=== PATIENT | male | born 1985 | race Hispanic/Latino ===

== ENCOUNTER 2019-08-23 12:19 | Emergency (ER) | payer SELFPAY ==
[2019-08-23] MEDS ORDERED: Iopamidol-370 76% 500 ML 1 ML ONE (13:00)
[2019-08-23] MEDS ORDERED: Ketorolac Tromethamine 30 MG/ML VIAL ONE (13:35)
[2019-08-23] MEDS ORDERED: Fentanyl 100 MCG/2 ML VIAL ONE (13:36)
[2019-08-23 13:51] LABS: #Basophils 0.1 thou/uL (0.0-0.2); #Eosinphils 0.2 thou/uL (0.0-0.7); #Lymphocytes 2.4 thou/uL (1.20-3.40); #Monocytes 0.4 thou/uL (0.11-0.59); #Neutrophils 3.1 thou/uL (1.40-6.50); %Basophils 1.1 % (0.0-1.0); %Eosinophils 3.1 % (0.0-10.0); %Monocytes 6.9 % (0.0-10.0); %Neutrophils 49.8 % (42.0-75.0); Hemoglobin 13.9 g/dL (14.0-18.0); Mean Corpuscular HGB CONC 34.4 g/dL (32.0-36.0); Mean Corpuscular Hemoglobin 27.5 pg (27.0-31.0); Mean Corpuscular Volume 79.9 fL (78.0-98.0); Mean Platelet Volume 9.4 fL (7.4-10.4); Platelet Count 211 thou/uL (130-400); RBC Distribution Width 11.9 % (11.5-14.5); Red Blood Cell (RBC) Count 5.07 mill/uL (4.70-6.10); White Blood Cell (WBC) Count 6.2 thou/uL (4.8-10.8)
[2019-08-23 14:18] LABS: ALT (SGPT) 53 U/L (8-55); AST (SGOT) 28 U/L (5-34); Albumin 4.2 g/dL (3.5-5.0); Alkaline Phosphatase 77 U/L (40-110); Anion Gap 13 mmol/L (10-20); BUN (Urea Nitrogen) 15 mg/dL (8.9-20.6); Bilirubin, Total 0.3 mg/dL (0.2-1.2); Calc. Creatinine Clearance 0 mL/min (70-130); Calcium 9.3 mg/dL (7.8-10.44); Carbon Dioxide 25 mmol/L (22-29); Chloride 100 mmol/L (98-107); Estimated GFR-MDRD Greater than 90; Globulin 2.4 g/dL (2.4-3.5); Glucose 198 mg/dL (70-105); Potassium 4.6 mmol/L (3.5-5.1); Protein, Total 6.6 g/dL (6.0-8.3); Sodium 133 mmol/L (136-145)
--- NOTE | 2019-08-23 14:46 | CT ---
CT FACIAL BONES WITH CONTRAST: 08/23/19 INDICATIONS: Facial pain. Assess for abscess. There is no description as to side or location of pain. The technologist could not illicit a specific area of complaint. FINDINGS: There is abnormal soft tissue mass which may arise from the nasopharynx on the right but extends into the right pterygopalatine fossa. This mass does not show significant enhancement. There is erosion i nto the posterior right sphenoid air cell. There is also bone involvement of the right clivus with cl avicle erosion on the right anteriorly. The borders of this mass are difficult to delineate due to la ck of significant enhancement. There is evidence of intracranial extension with involvement of the me dial aspect of the right middle cranial fossa. This mass effaces the fossa of Rosenmuller on the rig ht and the AP dimension are in the 2.5 m range in the axial plane. The paranasal sinuses and mastoids are otherwise well aerated. In the oropharynx there is mild prominence of the palatine tonsils; however, these tonsils are symmet case. Hypopharynx is unremarkable as visualized. Parotid glands and submandibular glands appear unremarkable. Review of lymph node levels show level I adenopathy with slightly enlarged lymph nodes in both subman dibular regions. There is a prominent level II node on the right which measures up to 1.7 cm. Nonspec ific level II lymph nodes are seen on the left. IMPRESSION: 1. There is a soft tissue mass in the right nasopharynx which extends into the right pterygopala ke fossa. There is erosion into the posterior aspect of the right sphenoid sinus and there is also erosion into the clivus anteriorly on the right. There is evidence of extension into the right middle cranial fossa. This is a hypoenhancing lesion; however, HPV related squamous cell carcinoma should b e considered. There is level II adenopathy on the right which also can be seen with HPV related squam ous cell carcinoma. Recommend further evaluation with elective MRI of the face and neck to further assess extension. Findings relayed to Dr. Brown. POS: RE
== END 2019-08-23 15:46 | disposition home or self-care (01) ==
LOC: ERS 12:19
DX: D49.1 Neoplasm of unspecified behavior of respiratory system (principal); E11.9 Type 2 diabetes mellitus without complications; E78.5 Hyperlipidemia, unspecified; E78.00 Pure hypercholesterolemia, unspecified; I10 Essential (primary) hypertension; Z79.84 Long term (current) use of oral hypoglycemic drugs; Z79.899 Other long term (current) drug therapy
CPT/HCPCS: 36415; 70487; 80053; 85025; 96361; 96374; 96375; J1885; J3010; Q9967

== ENCOUNTER 2019-08-30 10:02 | Day surgery (SDC) | payer OTHER ==
[2019-08-29 16:09] VITALS: BMI 23.6
[2019-08-30] MEDS ORDERED: Sodium Bicarbonate 2.5 MEQ/5 ML VIAL ONE (10:12)
[2019-08-30] MEDS ORDERED: Lidocaine 1% PF 5 ML VIAL ONE (10:12)
--- NOTE | 2019-08-30 11:53 | ULT ---
ULTRASOUND GUIDED LYMPH NODE BIOPSY: HISTORY: Enlarged right neck lymph node. FINDINGS: Successful right neck lymph node biopsy with ultrasound guidance. Total of two 20-gauge Franseen biop sies were performed. Pathologist states that lesional tissue is present. TECHNIQUE: Consent was obtained to perform a right neck biopsy with ultrasound guidance. Right neck was prepped and draped in a sterile fashion. 1% lidocaine, buffered with sodium bicarbonate was used for local anesthesia. Under ultrasound guidance, a 20-gauge Franseen needle was advanced into the lymph node. G entle fine-needle aspiration was performed. Pathologist states lesional tissue is present. Second 20-gauge sample was obtained and placed directly into a fixative for flow cytometry. No immediate or post procedure complication. IMPRESSION: Successful right neck lymph node biopsy with ultrasound guidance. Transcribed Date/Time: 08/30/2019 12:09 PM
[2019-08-30 11:54] VITALS: BP 116/85; TEMP 97.7
== END 2019-08-30 11:20 | disposition home or self-care (01) ==
LOC: ULT 10:02
PROVIDERS: ATTEND Specialist
PROC: 07D13ZX Extraction of Right Neck Lymphatic, Percutaneous Approach, Diagnostic (ICD-10-PCS; principal; 2019-08-30)
DX: C96.9 Malignant neoplasm of lymphoid, hematopoietic and related tissue, unspecified (principal); E11.9 Type 2 diabetes mellitus without complications; I10 Essential (primary) hypertension; E78.00 Pure hypercholesterolemia, unspecified; Z79.82 Long term (current) use of aspirin; Z79.84 Long term (current) use of oral hypoglycemic drugs; Z79.899 Other long term (current) drug therapy
CPT/HCPCS: 38505; 88172; 88173; 88177; 88305; 88313; 88341; 88342; 88365; J2001

== ENCOUNTER 2019-09-11 07:35 | Outpatient (CLI) | payer OTHER, SELFPAY ==
--- NOTE | 2019-09-11 17:06 | EKG ---
Test Reason : Blood Pressure : / mmHG Vent. Rate : 072 BPM Atrial Rate : 072 BPM P-R Int : 116 ms QRS Dur : 090 ms QT Int : 344 ms P-R-T Axes : 082 089 083 degrees QTc Int : 376 ms Normal sinus rhythm Normal ECG Confirmed by DR. Harvey BELL ([id number]) on 09/11/2019 5:06:07 PM Referred By: PATRICK Confirmed By:DR. Harvey BELL
[2019-09-12 10:03] LABS: SARS-CoV-2 MS2 Positive; SARS-CoV-2 N Gene Negative; SARS-CoV-2 S Gene Negative; SARS-CoV-2 orf1ab Negative
== END 2019-09-11 07:36 | disposition home or self-care (01) ==
LOC: LABBT 07:35
PROVIDERS: ATTEND Specialist
DX: Z01.818 Encounter for other preprocedural examination (principal); Z11.59 Encounter for screening for other viral diseases; R22.1 Localized swelling, mass and lump, neck; G89.3 Neoplasm related pain (acute) (chronic); R51 Headache
CPT/HCPCS: 87635; 93005; 93010; U0002